=== PATIENT | male | born 1960 | race Caucasian/White ===

== ENCOUNTER 2021-02-16 10:24 | Emergency (ER) | payer OTHER ==
[~2021-02-16] VITALS: Ht 175.3 cm; Wt 78.0 kg
[2021-02-16 12:15] LABS: BASOPHILS % (AUTO) 1 % (0-1); EOSINOPHILS % (AUTO) 0 % (1-7); LYMPHOCYTES % (AUTO) 13 % (22-44); MEAN CORPUSCULAR HEMOGLOBIN 36.7 pg (27.5-34.5); MEAN CORPUSCULAR HGB CONC 34.5 g/dL (33.2-36.2); MEAN PLATELET VOLUME 7.4 fL (7.4-10.4); MONOCYTES % (AUTO) 7 % (2-9); NEUTROPHILS % (AUTO) 79 % (42-75); PLATELET COUNT 201 x10^3/uL (130-400); RED BLOOD COUNT 4.05 x10^6/uL (4.38-5.82); RED CELL DISTRIBUTION WIDTH 13.1 % (9.4-14.8)
--- NOTE | 2021-02-16 12:18 | NUR ---
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
[2021-02-16 12:25] LABS: ALBUMIN 3.7 g/dL (3.4-5.0); ANION GAP 5 mmol/L (5-15); CALCIUM 8.3 mg/dL (8.5-10.1); CHLORIDE 105 mmol/L (98-107); CREATININE 0.88 mg/dL (0.7-1.3)
[2021-02-16] MEDS ORDERED: TIOT18CA INH (12:50)
[2021-02-16] MEDS ORDERED: FLUT1DIS5 IH (12:50)
[2021-02-16] MEDS ORDERED: CLIN300C9 PO (12:50)
[2021-02-16] MEDS ORDERED: ALBU18HF INH (12:50)
--- NOTE | 2021-02-16 13:15 | NUR ---
REPORT TO [facility].
[2021-02-16] MEDS ORDERED: KETOROLAC 30 MG/1 ML ONE (13:19)
--- NOTE | 2021-02-16 13:29 | NUR ---
INJECTION GIVEN PER ORDER. WRAPPED PT LEFT LEF WITH SHAZIA WRAP. PT PREPPING FOR D/C
[2021-02-16] MEDS ORDERED: KETOROLAC 30 MG/1 ML IM ONE (13:30)
[2021-02-16 13:31] VITALS: BP 152/92
== END 2021-02-16 13:47 | disposition home or self-care (01) ==
LOC: ED 11:28
DX: S80.11XA Contusion of right lower leg, initial encounter (principal); X58.XXXA Exposure to other specified factors, initial encounter; Y93.89 Activity, other specified; Y92.89 Other specified places as the place of occurrence of the external cause; Y99.8 Other external cause status
CPT/HCPCS: 36415; 76881; 80048; 82040; 85025; 96372; 99284; J1885